=== PATIENT | female | born 1945 | race Caucasian/White ===

== ENCOUNTER → 2016-06-01 | Outpatient (CLI) | payer MEDICARE, BC ==
--- NOTE | 2016-06-01 11:43 | BD ---
EXAMINATION TYPE: MG DEXA axial skeleton. DATE OF EXAM: 06/01/2016 9:42 AM CLINICAL HISTORY: Height: 63.75 Weight: 109 FRAX RISK QUESTIONS: Alcohol (3 or more units per day): no Family History (Parent hip fracture): no Glucocorticoids (More than 3mos): no (Ex: prednisone, prednisolone, methylprednisolone, dexamethasone, and hydrocortisone). History of Fracture in Adulthood: no Secondary Osteoporosis: 1. Type 1 Diabetes: no 2. Hyperthyroidism: no 3. Menopause before 45: no 4. Malnutrition: no 5. Chronic liver disease: no Rheumatoid Arthritis: no Current Tobacco Use: no RISK FACTORS HISTORY OF: Surgery to Spine: yes, surgery for 2 ruptured discs about age 22 Family History of Osteoporosis: no Drink Alcohol: very very rarely Active: no Diet low in dairy products/other sources of calcium: no Postmenopausal woman: yes Take estrogen and/or progesterone medications: no Lost more than 2 inches in height since high school: no Frequent falls: no Poor Health: no Hyperparathyroidism: no Adrenal Insufficiency: no MEDICATIONS: Prednisone or other steroids: no Thyroid Medications: no Osteoporosis Medications: not now Which medication: Fosamax How Long: briefly, a couple months Additional Medications: calcium Additional History: hypoestrogenic female EXAM MEASUREMENTS: Bone mineral densitometry was performed using the [employer] System. Bone mineral density as measured about the Lumbar spine is: ----- L1-L4(G/cm2): 0.920 T Score Values are as follows: ----- L2: -2.4 ----- L3: -2.0 ----- L4: -1.9 ----- L1-L4: -2.2 Bone mineral density NOT previously done at this facility; previous elsewhere Bone mineral density about the R hip (g/cm2): 0.821 Bone mineral density about the L hip (g/cm2): 0.806 T Score values are as follows: -----R Neck: -1.6 -----L Neck: -1.7 -----R Intertrochanter: -2.2 -----L Intertrochanter: -1.9 Bone mineral density NOT previously done at this facility; previous elsewhere IMPRESSION: Osteopenia (T Score between -2.5 and -1 as noted by T score valuesLumbar Spine & Bilateral Hips There is slightly increased risk of fracture and the patient may be considered for treatment. Re-Screen 1-2 years. NOTE: T-SCORE=SD OF THE YOUNG ADULT MEAN.
--- NOTE | 2016-06-04 07:45 | MM ---
Reason for exam: screening (asymptomatic). Last mammogram was performed 1 year ago. History: Patient is postmenopausal and has history of high-risk lesion on a previous biopsy at age 48. High risk excisional biopsy of the left breast, 1994. Physical Findings: A clinical breast exam by your physician is recommended on an annual basis and results should be correlated with mammographic findings. MG 3D Screening Mammo W/Cad Bilateral CC and MLO view(s) were taken. Prior study comparison: May 28, 2015, mammogram, performed at [facility]. May 21, 2014, mammogram, performed at [facility]. The breast tissue is heterogeneously dense. This may lower the sensitivity of mammography. No significant changes when compared with prior studies. ASSESSMENT: Benign, BI-RAD 2 RECOMMENDATION: Routine screening mammogram of both breasts in 1 year.
== END | disposition home or self-care (01) ==
LOC: RADMAMWWP 08:25
PROVIDERS: ATTEND Obstetrics & Gynecology Obstetrics
DX: Z12.31 Encounter for screening mammogram for malignant neoplasm of breast (principal); M85.89 Other specified disorders of bone density and structure, multiple sites
CPT/HCPCS: 77080; 77063; G0202

== ENCOUNTER → 2016-11-25 | Outpatient (CLI) | payer MEDICARE, BC ==
--- NOTE | 2016-11-25 17:11 | US ---
EXAMINATION TYPE: US gallbladder DATE OF EXAM: 11/25/2016 COMPARISON: NONE CLINICAL HISTORY: Abd pain R10.84. back pain EXAM MEASUREMENTS: Liver Length: 10.8 cm Gallbladder Wall: 0.8 cm CBD: 0.5 cm Right Kidney: 10.3 x 3.9 x 4.3 cm Pancreas: not well visualized Liver: wnl Gallbladder: large stone near neck that did not mo;ve with patient rolled. thickened irregular wall, debris throughout Evidence for sonographic Christie's sign: No CBD: wnl Right Kidney: No hydronephrosis or masses seen IMPRESSION: There is a large gallstone impacted in the gallbladder neck. This measures 2.5 cm. There is some gallbladder wall thickening consistent with cholecystitis. No dilated ducts.
[2016-11-25 17:18] LABS: CH 26.7; CHCM 30.9; HCT 31.5 % (34.0-46.0); HDW 2.81; Hypochromasia Moderate; MCH 27.6 pg (25.0-35.0); MCHC 31.8 g/dL (31.0-37.0); MCV 86.7 fL (80.0-100.0); Mean Platelet Volume 7.5; RBC 3.63 m/uL (3.80-5.40); RDW 15.1 % (11.5-15.5); WBC 7.8 k/uL (3.8-10.6)
[2016-11-25 17:41] LABS: ALT 30 U/L (9-52); AST 18 U/L (14-36); Alkaline Phosphatase 70 U/L (38-126); Anion Gap 8 mmol/L; Blood Urea Nitrogen 19 mg/dL (7-17); Calcium 10.1 mg/dL (8.4-10.2); Carbon Dioxide 28 mmol/L (22-30); Chloride 102 mmol/L (98-107); Glucose 84 mg/dL (74-99); Non-African American GFR(MDRD) >60 (>60 ml/min/1.73 sqM); Potassium 4.8 mmol/L (3.5-5.1); Sodium 138 mmol/L (137-145); Total Bilirubin 0.5 mg/dL (0.2-1.3); Total Protein 6.4 g/dL (6.3-8.2)
== END | disposition home or self-care (01) ==
LOC: RADUSMAIN 16:36
PROVIDERS: ATTEND Surgery
DX: K80.20 Calculus of gallbladder without cholecystitis without obstruction (principal); K82.8 Other specified diseases of gallbladder
CPT/HCPCS: 76705; 80053; 85027

== ENCOUNTER 2016-12-24 08:38 | Inpatient (IN) | payer MEDICARE, BC ==
[2016-12-21 09:39] VITALS: BMI 18.2
[~2016-12-24 08:38] MED LIST: ceFAZolin 2 GM in SODIUM CHLORIDE 0.9% 100 ML IVPB ONE
[2016-12-24] MEDS: LIDOCAINE 1% 20 ML VIAL (10MG/ML) FOR IV START INTRADERMA ONE ×2 (09:12→09:28)
[2016-12-24] MEDS ORDERED: LACTATED RINGERS 1,000 ML IV ONE ×4 (09:12→09:27)
[2016-12-24] MEDS ORDERED: DEXAMETHASONE SOD PHOSPHATE 10 MG/ML 1 ML VIAL IV ONE (09:29)
[2016-12-24] MEDS ORDERED: ONDANSETRON 4 MG/2 ML VIAL IVP ONE (09:30)
[2016-12-24] MEDS: HEPARIN SODIUM,PORCINE 5,000 UNIT/ML 1 ML VIAL SQ ONE ×2 (09:34→13:24)
[2016-12-24] MEDS ORDERED: LIDOCAINE 1% INJ 10MG/ML (20 ML MDV) ONE (10:24)
[2016-12-24] MEDS ORDERED: MIDAZOLAM 2 MG/2 ML VIAL ONE (10:24)
[2016-12-24] MEDS ORDERED: fentaNYL (PF) 50 MCG/ML 2 ML AMP ONE (10:24)
[2016-12-24] MEDS ORDERED: ROCURONIUM BROMIDE 10 MG/ML 10 ML VIAL IV ONE (10:24)
[2016-12-24] MEDS ORDERED: NEOSTIGMINE 1 MG/ML 10 ML VIAL ONE (10:24)
[2016-12-24] MEDS ORDERED: SUCCINYLCHOLINE CHLORIDE 100 MG/5 ML SYR IV ONE (10:24)
[2016-12-24] MEDS ORDERED: PROPOFOL 10 MG/ML 20 ML VIAL IV ONE (10:24)
[2016-12-24] MEDS ORDERED: GLYCOPYRROLATE 0.2 MG/ML 2 ML VIAL ONE (10:24)
[2016-12-24] MEDS ORDERED: BUPIVACAINE (PF) 0.25% 30 ML VIAL SQ ONE ×3 (10:29)
[2016-12-24 11:47] LABS: Basophils % (A) 0 %; CHCM 29.6; Eosinophils % (A) 1 %; HCT 31.9 % (34.0-46.0); HDW 2.92; HGB 9.7 gm/dL (11.4-16.0); Hypochromasia Marked; Luc % (Auto) 2; Lymphocytes # (A) 1.2 k/uL (1.0-4.8); Lymphocytes % (A) 20 %; MCH 26.8 pg (25.0-35.0); MCHC 30.4 g/dL (31.0-37.0); MCV 88.2 fL (80.0-100.0); Mean Platelet Volume 7.3; Monocytes # (A) 0.2 k/uL (0-1.0); Monocytes % (A) 3 %; Neutrophils # (A) 4.4 k/uL (1.3-7.7); Neutrophils % (A) 74 %; RBC 3.62 m/uL (3.80-5.40); WBC 5.9 k/uL (3.8-10.6); WBC (Perox) 5.94
[2016-12-24] MEDS ORDERED: ONDANSETRON 4 MG/2 ML VIAL IVP PRN (12:08)
[2016-12-24] MEDS ORDERED: HYDROcodone/APAP 5-325MG 1 EACH TAB PO PRN (12:08)
[2016-12-24] MEDS ORDERED: NALOXONE 0.4 MG/ML 1 ML VIAL IV PRN (12:08)
[2016-12-24 12:11] LABS: INR 1.2 (<1.2); Prothrombin Time 11.8 sec (9.0-12.0)
[2016-12-24] MEDS ORDERED: RX INFO: IV CONTRAST WAS GIVEN 1 EACH MISC MISCELLANE PRN (12:14)
[2016-12-24] MEDS ORDERED: D5-0.45% NACL WITH KCL 20MEQ/L 1,000 ML IV SCH (12:15)
--- NOTE | 2016-12-24 12:28 | P.GSHP ---
History of Present Illness H&P Date: 12/24/16 Chief Complaint: back pain Female who a couple of months ago had back pain it was pretty mild did not interfere with her Life all that much. And she was worked up initially with an MRI that did not reveal any malignancy. The patient however is known to have very little food intake and after this particular attack the patient's nutritional status with decreased considerably since the MRI did not show anything of further ultrasound also did not reveal any other complication or anything to suggest malignancy at the time I recommended a laparoscopic possible robotic-assisted laparoscopic cholecystectomy. Procedure was not completed and she was extubated and taken to recovery room in stable condition. - Review of Systems Comment: And is drowsy the stent she just got out of surgery. No previous history of issues on review of systems except for the abdomen where she had pain radiating to the back. And this is based upon previous H&P that her 14 system review is essentially negative. ROS unobtainable: Reports: due to mental status Past Medical History Past Medical History: No Reported History History of Any Multi-Drug Resistant Organisms: None Reported Past Surgical History: Adenoidectomy, Appendectomy, Back Surgery, Tonsillectomy Past Anesthesia/Blood Transfusion Reactions: No Reported Reaction Smoking Status: Never smoker - Past Family History Mother Family Medical History: Cancer Additional Family Medical History / Comment(s): uterine cancer Medications and Allergies Home Medications Medication Instructions Recorded Confirmed Type Aspirin [Adult Low Dose Aspirin EC] 81 mg PO DAILY 12/21/16 12/24/16 History Calcium Carbonate [Calcium] 600 mg PO DAILY 12/21/16 12/24/16 History Fish Oil/Dha/Epa [Fish Oil 1,200 1 each PO DAILY 12/21/16 12/24/16 History mg Fish Oil] Garlic 1 each PO DAILY 12/21/16 12/24/16 History Multivitamins, Thera [Multivitamin 1 tab PO DAILY 12/21/16 12/24/16 History (formulary)] Allergies Allergy/AdvReac Type Severity Reaction Status Date / Time No Known Allergies Allergy Verified 12/24/16 08:52 Surgical - Exam Vital Signs Temp Pulse Resp BP Pulse Ox 97.0 F L 54 L 18 136/79 99 12/24/16 08:53 12/24/16 08:53 12/24/16 08:53 12/24/16 08:53 12/24/16 08:53 - General moderate pain, cachectic - Eyes no icteric, no deviation - ENT normal pinna, normal nares - Respiratory normal expansion, normal respiratory effort - Cardiovascular Rhythm: regular - Abdomen Patient abdomen is appropriately tender for being postsurgical. - Integumentary no rash, no growths, no abnormal pigmentation - Neurologic no disoriented, no combative - Psychiatric oriented to time, oriented to person, oriented to place, speech is normal, memory intact Results - Labs 12/24/16 11:23 Abnormal Lab Results - Last 24 Hours (Table) 12/24/16 12/24/16 Range/Units 11:23 11:23 RBC 3.62 L (3.80-5.40) m/uL Hgb 9.7 L (11.4-16.0) gm/dL Hct 31.9 L (34.0-46.0) % MCHC 30.4 L (31.0-37.0) g/dL INR 1.2 H (<1.2) - Imaging Additional studies: Ultrasound showed that there was an impacted stone in the gallbladder neck. MRI was unremarkable for any malignancy. Assessment and Plan (1) Coagulopathy Status: Acute (2) Malnutrition Status: Acute (3) Cholelithiases Status: Acute Plan: Due to the patient's minimal symptoms she was brought in today for this procedure. Initially during the procedure and while accessing the abdominal cavity there was some bleeding due to minor laceration of the liver however once the ports had been established there was significant amount of bleeding on any tissue that was touched including skin due to the coagulopathy the procedure was not completed and she was extubated and taken out of the operating room. Hemoglobin done intraoperatively was 9.7 which is not considerably below the tendon was done preoperatively. However detailed discussion with the patient and the patient's family for the past 2 months the patient intake has been generally poor and she has been losing weight for about and she has lost about 10 pounds she is currently malnourished with a BMI of 18.2. Although she has been active her nutritional intake has been very very low and I strongly suspect malnutrition related coagulopathy. There was very densely adherent bowel and adhesions around the gallbladder itself. There any kind of dissection was being done resulted in significant amount of bleeding and also easy fracturing of the liver. Although the bleeding was controlled both with electrocautery as well as FloSeal the procedure was abandoned for insertion that this may be malignant and while eating the planes weren't resulted in converting this into a stage IV. I will discuss this both with the patient family and the family and we will consult hepatobiliary surgeon for further follow-up. Her malnutrition I will consult nutrition and looped nutritional parameters Due to the coagulopathy I will consult Dr. De Santiago can help also with workup for possible gallbladder cancer.
--- NOTE | 2016-12-24 12:34 | P.OP ---
Date of Procedure: 12/24/16 Preoperative Diagnosis: symptomatic cholelithiasis Postoperative Diagnosis: coagulopahty choleltihaisis Procedure(s) Performed: Diagnositc laparoscopy Anesthesia: ARTEMIO Surgeon: Alex Wilson Pathology: none sent Operative Findings: Significant amount of adhesions in the right upper quadrant precluding proper visualization of the gallbladder. Very fragile liver with easy tears. Significant amount of coagulopathy. Description of Procedure: Patient is 71-year-old female who presented with moderate amounts tender wanted to severe back pain. She is a very stoic person and was initially worked up both with an MRI and ultrasound revealing a large stone impacted in the infundibulum of the gallbladder. Due to the fact that there was no obvious reason to consider malignancy from the MRI and the ultrasound and recommended laparoscopic cholecystectomy. She is brought in today and after appropriate consent taken the operating room and given general anesthesia with endotracheal intubation abdomen prepped and draped in the usual sterile surgical fashion. Stone's point was identified in the left upper quadrant Veress needle was introduced and all the drop test was positive the insufflation Showing occlusion at this time the Veress needle was removed and Optiview isn't attempted. 5 mm scope was used for the Optiview technique. Once passing through this skin and subcu anus tissue there was sudden gush of blood and that was when I did not proceed with the Optiview and removed it. Several umbilical site was identified and Veress needle again was used for entering the abdominal cavity abdomen was thoroughly insufflated to 50 mmHg and then a 12 mm port was placed in that site. It was noted that in the left upper quadrant there was significant amount of blood was superficial laceration of the liver itself. This was very easily controlled with minimal electrocautery. This was that was also some reported with FloSeal being put on top of it. There was thoroughly irrigation the left upper quadrant there was no further bleedings pain did not look injured the liver was itself folded upwards there then it had not gone all the way through posterior surface of the left toe completely looked completely normal. At this time to for the port was placed in the left lower quadrant of note is that she had very thin and very fragile abdominal wall and allowed very easy passage of the ports. The gallbladder side area was identified and there was dense adhesions. It was gently elevated and in spite of very gentle motion there was significant amount of bleeding from the adhesions with the gallbladder. On the liver itself easily fractured but does smoke and there was small linear tears in the capsule only in the wound and the bleeding was controlled with electrocautery. Due to the fact that it looked so thick second I strongly suspected a malignancy and therefore did not proceed to use electrocautery to cut right through arm and due to the significant amount of bleeding with minimal Touching and the continued bleeding from the skin and the skin and the incisional surfaces strongly suspected a coagulopathy and because of that I didn't stop. A stat CBC was sent at this time. Abdomen was thoroughly irrigated and sucked dry the procedure well at this time terminated. Hemostasis was noted to be secure. 19-Kiswahili drain was placed in the subhepatic fossa extending to the left upper quadrant and secured in the right upper quadrant. The patient remained stable throughout the rest of the Mukesh abdomen was thoroughly investigated there was no other signs of injury. Once this was done all ports were removed abdomen was thoroughly desufflated the 12 mm port site was closed with UR 6 running under direct vision. 5 mm ports had been removed skin was closed with 4-0 Monocryl and Dermabond was applied patient was extubated and taken to recovery room in stable condition.
[2016-12-24 16:21] LABS: Basophils % (A) 0 %; CH 26.7; CHCM 30.9; Eosinophils % (A) 0 %; HDW 2.93; HGB 9.6 gm/dL (11.4-16.0); Hypochromasia Moderate; Luc # (Auto) 0.04; Luc % (Auto) 1; Lymphocytes # (A) 0.4 k/uL (1.0-4.8); Lymphocytes % (A) 6 %; MCV 86.9 fL (80.0-100.0); Mean Platelet Volume 7.8; Monocytes # (A) 0.1 k/uL (0-1.0); Monocytes % (A) 1 %; Neutrophils # (A) 6.3 k/uL (1.3-7.7); Neutrophils % (A) 92 %; RBC 3.68 m/uL (3.80-5.40); RDW 15.8 % (11.5-15.5); WBC 6.9 k/uL (3.8-10.6); WBC (Perox) 7.64
[2016-12-24 16:30] LABS: Anion Gap 10 mmol/L; Blood Urea Nitrogen 21 mg/dL (7-17); Calcium 9.6 mg/dL (8.4-10.2); Carbon Dioxide 24 mmol/L (22-30); Chloride 103 mmol/L (98-107); Glucose 167 mg/dL (74-99); Non-African American GFR(MDRD) >60 (>60 ml/min/1.73 sqM); Potassium 4.1 mmol/L (3.5-5.1); Sodium 137 mmol/L (137-145)
--- NOTE | 2016-12-24 17:51 | CT ---
EXAMINATION TYPE: CT abdomen pelvis w con DATE OF EXAM: 12/24/2016 COMPARISON: NONE HISTORY: Excessive bleeding during attempt to perform cholecystectomy. Surgery was abandoned. Patient complains of weight loss. CT DLP: 289.30 mGycm Automated exposure control for dose reduction was used. TECHNIQUE: Helical acquisition of images was performed from the lung bases through the pelvis. CONTRAST: Performed without Oral Contrast and with IV Contrast, patient injected with 100 mL of Omnipaque 300. FINDINGS: There is subcutaneous air and also small pneumoperitoneum apparently due to recent surgery. Lung bases are clear of consolidation. There is no sign of a pneumothorax. Heart is enlarged. There i s no pleural effusion. There is irregular thickening of the gallbladder wall. There is a 2 cm calcified gallstone. There is hypodensity around the gallbladder that could be involving the liver. Spleen appears normal. There is no evidence of pancreatic mass. Bile ducts are not dilated. There is a large drainage catheter in the anterior upper abdomen. There is no adrenal mass. I see no bony destructive process. There is no hydronephrosis. There is free fluid in the pelvis. Aj dder distends smoothly. There is no sign of a pelvic mass. There is a 2 cm area of decreased cortical density in the medial posterior right kidney. This could be due to ischemia. IMPRESSION: POSTSURGICAL CHANGES. EXTENSIVE GALLBLADDER WALL THICKENING AND LARGE CALCIFIED GALLSTONE. GALLBLADDE R MASS CANNOT BE EXCLUDED. THERE IS POSSIBLE EDEMA IN THE LIVER ADJACENT TO GALLBLADDER. MODERATE AMOUNT OF FREE FLUID IN THE PELVIS CONSISTENT WITH ASCITES OR IRRIGATION FLUID FROM THE SURG GILBERTO. THIS HAS LOW ATTENUATION AND I DO NOT SUSPECT HEMORRHAGE.. CORTICAL HYPODENSITY IN THE RIGHT KIDNEY COULD RELATE TO ISCHEMIA OR INFARCT.
[2016-12-24 19:52] VITALS: RESP 16
[2016-12-24] MEDS ORDERED: traMADol 50 MG TAB PO SCH (22:00)
[2016-12-25] MEDS: traMADol 50 MG TAB PO PRN ×3 (01:06→14:20)
[2016-12-25] MEDS ORDERED: PANTOPRAZOLE 40 MG/10 ML VIAL IV SCH (09:00)
[2016-12-25] MEDS ORDERED: RX INFO: IV CONTRAST WAS GIVEN 1 EACH MISC MISCELLANE PRN (09:20)
[2016-12-25 10:08] LABS: Anisocytosis Slight; Basophils % (A) 0 %; CH 26.7; CHCM 30.7; Eosinophils % (A) 0 %; HCT 28.8 % (34.0-46.0); HDW 2.91; HGB 8.7 gm/dL (11.4-16.0); Hypochromasia Moderate; Luc # (Auto) 0.08; Luc % (Auto) 1; Lymphocytes # (A) 1.1 k/uL (1.0-4.8); Lymphocytes % (A) 14 %; MCH 26.5 pg (25.0-35.0); MCHC 30.3 g/dL (31.0-37.0); MCV 87.5 fL (80.0-100.0); Mean Platelet Volume 7.9; Monocytes # (A) 0.5 k/uL (0-1.0); Monocytes % (A) 6 %; Neutrophils % (A) 78 %; RBC 3.29 m/uL (3.80-5.40); WBC 7.7 k/uL (3.8-10.6); WBC (Perox) 7.87
[2016-12-25 10:13] VITALS: PULSE 53
[2016-12-25 11:24] LABS: ALT 35 U/L (9-52); AST 28 U/L (14-36); Alkaline Phosphatase 71 U/L (38-126); Anion Gap 9 mmol/L; Blood Urea Nitrogen 26 mg/dL (7-17); Calcium 10.2 mg/dL (8.4-10.2); Carbon Dioxide 23 mmol/L (22-30); Chloride 99 mmol/L (98-107); Glucose 110 mg/dL (74-99); Non-African American GFR(MDRD) >60 (>60 ml/min/1.73 sqM); Potassium 5.4 mmol/L (3.5-5.1); Sodium 131 mmol/L (137-145); Total Bilirubin 0.4 mg/dL (0.2-1.3); Total Protein 6.5 g/dL (6.3-8.2)
--- NOTE | 2016-12-25 12:51 | P.CONS ---
History of Present Illness - Reason for Consult cholelithiasis. - History of Present Illness patient a is a pleasant 71-year-old female admitted for elective cholecystectomy. During the surgery operative. Patient is found to have excessive bleeding during the procedure because of which cholecystectomy was not done and patient was admitted for monitoring. Patient is clinically doing well today patient in the past and is found to have cholelithiasis without any complications without any cholecystitis patient had an MRI to rule out malignancy which did not reveal any malignancy at that time. Patient used to take aspirin which was discontinued for probably 6 weeks ago. And patient also takes garlic which may contribute to excessive bleeding as well. Patient was never tested for any bleeding disorders. Review of Systems REVIEW OF SYSTEMS: CONSTITUTIONAL: No fever, no malaise, no fatigue. HEENT: No recent visual problems or hearing problems. Denied any sore throat. CARDIOVASCULAR: No chest pain, orthopnea, PND, no palpitations, no syncope. PULMONARY: No shortness of breath, no cough, no hemoptysis. GASTROINTESTINAL: No diarrhea, no nausea, no vomiting, no abdominal pain. Normoactive bowel sounds. NEUROLOGICAL: No headaches, no weakness, no numbness. HEMATOLOGICAL: Denies any bleeding or petechiae. GENITOURINARY: Denies any burning micturition, frequency, or urgency. MUSCULOSKELETAL/RHEUMATOLOGICAL: Denies any joint pain, swelling, or any muscle pain. ENDOCRINE: Denies any polyuria or polydipsia. The rest of the 14-point review of systems is negative. Past Medical History Past Medical History: No Reported History History of Any Multi-Drug Resistant Organisms: None Reported Past Surgical History: Adenoidectomy, Appendectomy, Back Surgery, Tonsillectomy Past Anesthesia/Blood Transfusion Reactions: No Reported Reaction Smoking Status: Never smoker - Past Family History Mother Family Medical History: Cancer Additional Family Medical History / Comment(s): uterine cancer Father Additional Family Medical History / Comment(s): [facility], at 86 Medications and Allergies Home Medications Medication Instructions Recorded Confirmed Type Calcium Carbonate [Calcium] 600 mg PO DAILY 12/21/16 12/24/16 History Fish Oil/Dha/Epa [Fish Oil 1,200 1 cap PO DAILY 12/21/16 12/24/16 History mg Fish Oil] Multivitamins, Thera [Multivitamin 1 tab PO DAILY 12/21/16 12/24/16 History (formulary)] Allergies Allergy/AdvReac Type Severity Reaction Status Date / Time No Known Allergies Allergy Verified 12/24/16 08:52 Physical Exam Vitals: Vital Signs Temp Pulse Pulse Pulse Resp BP Pulse Ox 12/25/16 07:00 97.7 F 53 L 16 121/68 100 12/25/16 01:09 97.8 F 60 16 109/65 100 12/24/16 19:40 98.1 F 54 L 54 L 16 124/75 100 12/24/16 15:00 55 L 146/72 12/24/16 14:45 50 L 132/79 12/24/16 14:30 51 L 134/82 12/24/16 14:15 55 L 130/79 12/24/16 14:00 57 L 141/80 12/24/16 13:45 48 L 134/76 12/24/16 13:30 98.0 F 50 L 17 133/73 99 12/24/16 13:01 52 L 16 115/60 98 12/24/16 12:47 52 L 16 113/62 98 Intake and Output 12/24/16 12/25/16 12/25/16 22:59 06:59 14:59 Output Total 355 80 30 Balance -355 -80 -30 Output: Drainage 355 80 30 Right Lower Abdomen 355 80 30 Other: # Voids 3 3 Weight 46.72 kg Patient Weight 12/26/16 06:59 Weight 46.72 kg PHYSICAL EXAMINATION: GENERAL: The patient is alert and oriented x3, not in any acute distress. Well developed, well nourished. HEENT: Pupils are round and equally reacting to light. EOMI. No scleral icterus. No conjunctival pallor. Normocephalic, atraumatic. No pharyngeal erythema. No thyromegaly. CARDIOVASCULAR: S1 and S2 present. No murmurs, rubs, or gallops. PULMONARY: Chest is clear to auscultation, no wheezing or crackles. ABDOMEN: Soft,surgical site appeared area appears to be clear without any bleeding. MUSCULOSKELETAL: No joint swelling or deformity. EXTREMITIES: No cyanosis, clubbing, or pedal edema. NEUROLOGICAL: Gross neurological examination did not reveal any focal deficits. SKIN: No rashes. Results CBC & Chem 7: 12/25/16 07:17 12/25/16 10:56 Labs: Abnormal Lab Results - Last 24 Hours (Table) 12/24/16 12/24/16 12/24/16 Range/Units 15:50 15:50 15:50 RBC 3.68 L (3.80-5.40) m/uL Hgb 9.6 L (11.4-16.0) gm/dL Hct 32.0 L (34.0-46.0) % MCHC 30.0 L (31.0-37.0) g/dL RDW 15.8 H (11.5-15.5) % Lymphocytes # 0.4 L (1.0-4.8) k/uL Sodium (137-145) mmol/L Potassium (3.5-5.1) mmol/L BUN 21 H (7-17) mg/dL Glucose 167 H (74-99) mg/dL Prealbumin 11.0 L (18.0-42.0) mg/dL 12/25/16 12/25/16 Range/Units 07:17 10:56 RBC 3.29 L (3.80-5.40) m/uL Hgb 8.7 L (11.4-16.0) gm/dL Hct 28.8 L (34.0-46.0) % MCHC 30.3 L (31.0-37.0) g/dL RDW 16.0 H (11.5-15.5) % Lymphocytes # (1.0-4.8) k/uL Sodium 131 L (137-145) mmol/L Potassium 5.4 H (3.5-5.1) mmol/L BUN 26 H (7-17) mg/dL Glucose 110 H (74-99) mg/dL Prealbumin (18.0-42.0) mg/dL Assessment and Plan Plan: #1 cholelithiasis: Patient had unsuccessful cholecystectomy procedure. Regarding excessive bleeding I recommended her to stop garlic and patient can be tested as an outpatient for clotting factor deficiencies. Regarding aspirin patient may not benefit from aspirin since she doesn't have any high blood pressure hyperlipidemia or diabetes mellitus. I believe it's being used as a preventative measure for several vascular accidents and myocardial infarction.
--- NOTE | 2016-12-25 13:05 | ECHOF ---
Referral Reason:Evaluate LV Function MEASUREMENTS -------- HEIGHT: 160.0 cm WEIGHT: 46.7 kg BP: 109/65 RVIDd: 2.6 cm (< 3.3) IVSd: 0.7 cm (0.6 - 1.1) LVIDd: 4.1 cm (3.9 - 5.3) LVPWd: 0.7 cm (0.6 - 1.1) IVSs: 1.1 cm LVIDs: 2.5 cm LVPWs: 1.2 cm LA Diam: 2.6 cm (2.7 - 3.8) LAESV Index (A-L): 21.69 ml/m Ao Diam: 2.9 cm (2.0 - 3.7) AV Cusp: 1.9 cm (1.5 - 2.6) MV EXCURSION: 18.894 mm (> 18.000) MV EF SLOPE: 105 mm/s (70 - 150) EPSS: 0.3 cm MV E Mark: 0.86 m/s MV DecT: 209 ms MV A Mark: 0.62 m/s MV E/A Ratio: 1.40 RAP: 5.00 mmHg RVSP: 21.56 mmHg FINDINGS -------- Resting bradycardia (HR<60bpm). This was a technically good study. The left ventricular size is normal. Left ventricular wall thickness is normal. Overall left ventricular systolic function is low-normal with, an EF between 50 - 55 %. The right ventricle is normal in size. Normal LA size by volume 22+/-6 ml/m2. The right atrium is normal in size. The aortic valve is trileaflet and appears structurally normal. There is trace mitral regurgitation. Mild tricuspid regurgitation present. Right ventricular systolic pressure is normal at < 35 mmHg. There is no pulmonic regurgitation present. The aortic root size is normal. The inferior vena cava is mildly dilated. There is a trivial pericardial effusion present. CONCLUSIONS -------- 1. Resting bradycardia (HR<60bpm). 2. There is trace mitral regurgitation. 3. Mild tricuspid regurgitation present. 4. Right ventricular systolic pressure is normal at < 35 mmHg. 5. There is no pulmonic regurgitation present. 6. The aortic root size is normal. 7. The inferior vena cava is mildly dilated. 8. There is a trivial pericardial effusion present. 9. This was a technically good study. 10. The left ventricular size is normal. 11. Left ventricular wall thickness is normal. 12. Overall left ventricular systolic function is low-normal with, an EF between 50 - 55 %. 13. The right ventricle is normal in size. 14. Normal LA size by volume 22+/-6 ml/m2. 15. The right atrium is normal in size. 16. The aortic valve is trileaflet and appears structurally normal. MEDICAL CODING TECHNICIAN: Delilah James RDCS
[2016-12-25 13:27] LABS: Basophils % (A) 0 %; CH 26.9; CHCM 31.2; Eosinophils % (A) 0 %; HCT 29.7 % (34.0-46.0); HDW 2.94; Hypochromasia Moderate; Luc % (Auto) 1; Lymphocytes % (A) 12 %; MCH 26.3 pg (25.0-35.0); MCHC 30.3 g/dL (31.0-37.0); MCV 86.6 fL (80.0-100.0); Mean Platelet Volume 7.7; Monocytes # (A) 0.5 k/uL (0-1.0); Monocytes % (A) 6 %; Neutrophils # (A) 6.6 k/uL (1.3-7.7); Neutrophils % (A) 80 %; RBC 3.43 m/uL (3.80-5.40); RDW 15.9 % (11.5-15.5); WBC 8.2 k/uL (3.8-10.6); WBC (Perox) 8.82
--- NOTE | 2016-12-25 13:50 | CDI ---
In responding to this query, please exercise your independent professional judgment. The [facility] Coding Staff and Clinical Documentation Specialists appreciate your assistance in clarifying documentation, maintaining compliance with coding guidelines, accurately documenting patients condition and capturing severity of illness. The fact that a question is asked does not imply that any particular answer is desired or expected. Communication forms are a method of clarifying documentation and are not made part of the Legal Health Record. Thank you in advance for your clarification. Last Revision, January 2015 Sacha Alford [address] [place] [address] Documentation Clarification Form Date: 12/25/2016 1:39:00 PM From: Leola Bates CCS, CCDS Admit Date: 12/24/2016 12:07:00 PM Patient Name: Catherine Rollins Visit Number: [id number] Discharge Date: Dr. Alex Tapia Steve: Malnutrition has been documented in the history & physical. History/Risk Factors: Cholelithiasis, chronic back pain. Clinical Indicators: Admitted for elective laparoscopic cholecystectomy, procedure canceled d/t minor laceration of liver & bleeding, controlled w/ cautery. Labs: Albumin (3.5), PreAlbumin (3.5), Total Protein (6.5). Current BMI: 18.2 Poor oral intake, underweight, 5 lb unintentional weight loss. Treatment: Heparin sc, IV Kefzol, IV Narcan, IV Zofran, IV fluid, IV Protonix, Ensure. Dietary Consult, Hem/Onc consult, Medical management consult. In your professional opinion, can you please clarify if these findings signify one of the following conditions? Mild Protein Malnutrition Mild Protein-Calorie Malnutrition Moderate Protein Malnutrition Moderate Protein-Calorie Malnutrition Severe Protein Malnutrition Severe Protein-Calorie Malnutrition Malnutrition following GI surgery Other condition, please specify Unable to determine Please document in your progress notes and discharge summary in order to capture severity of illness and risk of mortality. Include clinical findings that support your diagnosis. FYI: Press F11 to launch patient chart. MTDYvonne
--- NOTE | 2016-12-25 14:17 | P.DS ---
Providers Date of admission: 12/24/16 12:07 Expected date of discharge: 12/25/16 Attending physician: Alex Mcdermott Consults: 12/24/16 12:08 Consult Physician Routine Consulting Provider: Emiliano De Santiago Consult Reason/Comments: excessive bleeding/ ciagulopathy Do you want consulting provider notified?: Yes 12/24/16 19:53 Consult Physician Routine Consulting Provider: Alfonso Bartholomew Consult Reason/Comments: Bradycardia Do you want consulting provider notified?: Yes Primary care physician: Alex Mcdermott Hospital Course: 71-year-old female who presented on the day of admission to undergo an elective cholecystectomy. During the procedure the patient was noted to have extensive bleeding very fragile liver which was easily tearing. There was a significant amount coagulopathy. Patient has a significant amount of adhesions in the right upper quadrant precluding proper visualization of the gallbladder given the above clinical findings Dr. mcdermott made a decision not to proceed with the cholecystectomy. Hematology consultation was requested patient was seen by Dr. De Santiago Hematology repeat hemoglobin on the was stable at 9 further workup would be addressed in the outpatient setting next Wednesday to by Dr. cmdermott in the office. Dr. mcdermott did update the family the clinical findings. Patient had an echocardiogram done on the 25 of December it did show left ventricular systolic function low normal with an EF between 50 and 55% no valvular heart disease no pulmonary hypertension Patient was noted to be sinus bradycardic asymptomatic heart rate in the 50s Impression discharge diagnosis Echocardiogram left ventricular systolic function low normal EF between 50 and 55% done on December 25 Asymptomatic bradycardic heart rate in the 50s Present on admission mild protein calorie malnutrition underweight BMI 18.2 suspect due to poor caloric intake decreased appetite Diagnostic laparoscopic appendectomy done on December 24 Operative findings and the significant amount of adhesions in the right upper quadrant protruding proper visualization of the gallbladder with a very fragile liver easy tears with a significant amount of coagulopathy suspect malignancy not ruled out The above impression and plan of care have been discussed and directed by signing physician. Glenny Wan nurse practitioner acting as scribe for signing physician. Plan - Discharge Summary New Discharge Prescriptions: Continue Multivitamins, Thera [Multivitamin (formulary)] 1 tab PO DAILY Fish Oil/Dha/Epa [Fish Oil 1,200 mg Fish Oil] 1 cap PO DAILY Calcium Carbonate [Calcium] 600 mg PO DAILY Discontinued Garlic 1 tab PO DAILY Aspirin [Adult Low Dose Aspirin EC] 81 mg PO DAILY Discharge Medication List Calcium Carbonate [Calcium] 600 mg PO DAILY 12/21/16 [History] Fish Oil/Dha/Epa [Fish Oil 1,200 mg Fish Oil] 1 cap PO DAILY 12/21/16 [History] Multivitamins, Thera [Multivitamin (formulary)] 1 tab PO DAILY 12/21/16 [History ] Follow up Appointment(s)/Referral(s): Alex Mcdermott MD [Primary Care Provider] - 12/29/16 Ambulatory/Diagnostic Orders: Basic Metabolic Panel [LAB.AMB] Time Frame: 3 Days, Location: Determined By Patient Complete Blood Count w/diff [LAB.AMB] Time Frame: 12/29/16, Location: Determined By Patient Complete Blood Count w/diff [LAB.AMB] Time Frame: 12/28/16, Location: Determined By Patient Comprehensive Metabolic Panel [LAB.AMB] Time Frame: 12/28/16, Location: Determined By Patient Comprehensive Metabolic Panel [LAB.AMB] Time Frame: 12/28/16, Location: Determined By Patient Activity/Diet/Wound Care/Special Instructions: Regular. Patient is scheduled for a CAT scan of the chest with IV contrast this coming Wednesday Discharge Disposition: HOME SELF-CARE
[2016-12-25 15:07] VITALS: BP 130/76; TEMP 97.5
--- NOTE | 2016-12-25 15:12 | P.CONS ---
History of Present Illness - Reason for Consult Consult date: 12/25/16 hemorrhage Requesting physician: Alex Wilson - Chief Complaint choelycystitis - History of Present Illness Mrs. Rollins is a very pleasant 71 year old female patient who came to the hospital with complaints of right upper quadrant pain that radiated to her right shoulder and across her back. Patient was seen by Dr. Wilson and taken pt to surgery for laparoscopic cholecystectomy. Unfortunately patient had severe bleeding so, the procedure was terminated after hemostasis was achieved. We have been consulted for intraoperative bleeding. Patient denied being on any anticoagulation or antiplatelet therapy, no history of bleeding problems, denied anemia, fevers, sweats, enlarged lymph nodes, excessive fatigue, she thinks she has lost a little bit of weight recently but, attributes that to her gallbladder, denies nausea or vomiting, indigestion, heartburn, abdominal pain or distention, she has had a few episodes of diarrhea, she relates it to what she eats, she denies black, mucoid or bloody stools, no shortness of breath, cough, activity intolerance, palpitations, dizziness, swelling in the feet or other pain to report. when asked patient feels in her usual state of health other than having "attacks", referring to her gallbladder. Review of Systems 14 point review of systems is as stated in HPI Past Medical History Past Medical History: No Reported History History of Any Multi-Drug Resistant Organisms: None Reported Past Surgical History: Adenoidectomy, Appendectomy, Back Surgery, Tonsillectomy Past Anesthesia/Blood Transfusion Reactions: No Reported Reaction Smoking Status: Never smoker Past Alcohol Use History: None Reported Past Drug Use History: None Reported - Past Family History Mother Family Medical History: Cancer Additional Family Medical History / Comment(s): uterine cancer Father Additional Family Medical History / Comment(s): parkinson's CT, at 86 Medications and Allergies Home Medications Medication Instructions Recorded Confirmed Type Calcium Carbonate [Calcium] 600 mg PO DAILY 12/21/16 12/24/16 History Fish Oil/Dha/Epa [Fish Oil 1,200 1 cap PO DAILY 12/21/16 12/24/16 History mg Fish Oil] Multivitamins, Thera [Multivitamin 1 tab PO DAILY 12/21/16 12/24/16 History (formulary)] traMADol HCL [Ultram] 50 mg PO Q6H PRN #30 tab 12/25/16 Rx Allergies Allergy/AdvReac Type Severity Reaction Status Date / Time No Known Allergies Allergy Verified 12/24/16 08:52 Physical Exam Vitals: Vital Signs Temp Pulse Pulse Pulse Resp BP Pulse Ox 12/25/16 07:00 97.7 F 53 L 16 121/68 100 12/25/16 01:09 97.8 F 60 16 109/65 100 12/24/16 19:40 98.1 F 54 L 54 L 16 124/75 100 Intake and Output 12/25/16 12/25/16 12/25/16 06:59 14:59 22:59 Output Total 80 30 Balance -80 -30 Output: Drainage 80 30 Right Lower Abdomen 80 30 Other: # Voids 3 3 Weight 46.72 kg Patient Weight 12/26/16 06:59 Weight 46.72 kg - Constitutional General appearance: cooperative, no acute distress, thin - EENT Eyes: anicteric sclerae, EOMI, normal appearance ENT: hearing grossly normal, normal oropharynx - Neck Neck: no lymphadenopathy - Respiratory Respiratory: bilateral: CTA - Cardiovascular Rhythm: regular Heart sounds: normal: S1, S2 leg Peripheral Edema: bilateral: Trace - Gastrointestinal laparoscopic incisions well approximated, patient is guarding her abdomen, no rigidity General gastrointestinal: normal bowel sounds, soft - Integumentary Integumentary: pale - Neurologic Neurologic: CNII-XII intact - Musculoskeletal Musculoskeletal: strength equal bilaterally - Psychiatric Psychiatric: A&O x's 3, appropriate affect, intact judgment & insight Results CBC & Chem 7: 12/25/16 13:11 12/25/16 10:56 Labs: Abnormal Lab Results - Last 24 Hours (Table) 12/24/16 12/24/16 12/24/16 Range/Units 15:50 15:50 15:50 RBC 3.68 L (3.80-5.40) m/uL Hgb 9.6 L (11.4-16.0) gm/dL Hct 32.0 L (34.0-46.0) % MCHC 30.0 L (31.0-37.0) g/dL RDW 15.8 H (11.5-15.5) % Lymphocytes # 0.4 L (1.0-4.8) k/uL Sodium (137-145) mmol/L Potassium (3.5-5.1) mmol/L BUN 21 H (7-17) mg/dL Glucose 167 H (74-99) mg/dL Prealbumin 11.0 L (18.0-42.0) mg/dL 12/25/16 12/25/16 12/25/16 Range/Units 07:17 10:56 13:11 RBC 3.29 L 3.43 L (3.80-5.40) m/uL Hgb 8.7 L 9.0 L (11.4-16.0) gm/dL Hct 28.8 L 29.7 L (34.0-46.0) % MCHC 30.3 L 30.3 L (31.0-37.0) g/dL RDW 16.0 H 15.9 H (11.5-15.5) % Lymphocytes # (1.0-4.8) k/uL Sodium 131 L (137-145) mmol/L Potassium 5.4 H (3.5-5.1) mmol/L BUN 26 H (7-17) mg/dL Glucose 110 H (74-99) mg/dL Prealbumin (18.0-42.0) mg/dL CT scan - abdomen: report reviewed CT scan - pelvis: report reviewed Assessment and Plan (1) Coagulopathy Narrative/Plan: Case was reviewed with Dr. De Santiago. Additional labs have been drawn for coagulopathy. Dr. De Santiago did discuss the case with Dr. Wilson and concerns for the friability and nodularity of the liver on inspection. CT of the chest has been ordered for Wednesday to complete imaging to evaluate for any possible mass. Follow-up appointment with Dr. De Santiago will be communicated to patient. Contact information has been taken. Status: Acute
[2016-12-28 06:09] LABS: Vitamin E (Alpha Tocopherol) 1202 ug/dL (500-1800)
[2016-12-28 14:39] LABS: Von Willebrand Factor Antigen 161 % (52-214)
[2016-12-28 22:35] LABS: Fibrinogen Antigen 330 mg/dL (180-350)
[2016-12-29 16:17] LABS: Mis test requested (Blood) Factor VII Activity
[2016-12-30 13:37] LABS: Vitamin K 250 pg/mL (80-1160)
== END 2016-12-25 16:45 | disposition home or self-care (01) | DRG 424 ==
LOC: OR 08:38 → 3SUR 12:07 → OR 13:01
PROVIDERS: ADMIT Surgery; ATTEND Surgery
PROC: 0W3G4ZZ Control Bleeding in Peritoneal Cavity, Percutaneous Endoscopic Approach (ICD-10-PCS; principal; 2016-12-24 10:30)
DX: K80.20 Calculus of gallbladder without cholecystitis without obstruction (principal); Z68.1 Body mass index [BMI] 19.9 or less, adult; D68.9 Coagulation defect, unspecified; R00.1 Bradycardia, unspecified; E44.1 Mild protein-calorie malnutrition; Z53.8 Procedure and treatment not carried out for other reasons
CPT/HCPCS: 74177; 80048; 80053; 82040; 82306; 84134; 84446; 84484; 84590; 84597; 85025; 85230; 85246; 85385; 85610; 93005; 93306

== ENCOUNTER → 2016-12-28 | Outpatient (CLI) | payer MEDICARE, BC ==
--- NOTE | 2016-12-28 10:09 | CT ---
EXAMINATION TYPE: CT chest w con DATE OF EXAM: 12/28/2016 COMPARISON: NONE HISTORY: Patient has no complaints at time of service CT DLP: 112.8 mGycm Automated exposure control for dose reduction was used. CONTRAST: CT scan of the chest is performed with IV Contrast, patient injected with 100 mL of Omnipaque 300. FINDINGS: LUNGS: The lungs are grossly clear, there is no concerning parenchymal mass or nodule identified. T here is no pleural effusion or pneumothorax seen. The tracheobronchial tree is patent. MEDIASTINUM: There are no greater than 1 cm hilar or mediastinal lymph nodes. The heart is mildly enl arged. Small pericardial effusion measuring 2 mm. Thoracic aorta is of normal caliber. The heart is n ot enlarged. UPPER ABDOMEN: Postoperative changes upper abdomen. Cholelithiasis with extensive gallbladder wall th ickening and pericholecystic fluid. Drainage catheter is in place. Subcutaneous air overlying the upp er right abdomen. OTHER: No additional significant abnormality is seen. IMPRESSION: 1. Mild cardiomegaly with tiny pericardial effusion. 2. Postoperative changes upper abdomen as discussed.
== END | disposition home or self-care (01) ==
LOC: RADCTMAIN 09:13
DX: I31.3 Pericardial effusion (noninflammatory) (principal); I51.7 Cardiomegaly; Z98.890 Other specified postprocedural states
CPT/HCPCS: 71260; Q9967

== ENCOUNTER → 2017-06-02 | Outpatient (CLI) | payer MEDICARE, BC ==
--- NOTE | 2017-06-03 11:11 | MM ---
Reason for exam: screening (asymptomatic). Last mammogram was performed 1 year ago. History: Patient is postmenopausal and has history of high-risk lesion on a previous biopsy at age 48. High risk excisional biopsy of the left breast, 1994. Physical Findings: A clinical breast exam by your physician is recommended on an annual basis and results should be correlated with mammographic findings. MG 3D Screening Mammo W/Cad Bilateral CC and MLO view(s) were taken. Prior study comparison: June 01, 2016, bilateral MG 3d screening mammo w/cad. May 28, 2015, mammogram, performed at [facility]. The breast tissue is heterogeneously dense. This may lower the sensitivity of mammography. No significant changes when compared with prior studies. ASSESSMENT: Benign, BI-RAD 2 RECOMMENDATION: Routine screening mammogram of both breasts in 1 year.
== END | disposition home or self-care (01) ==
LOC: RADMAMWWP 09:22
PROVIDERS: ATTEND Obstetrics & Gynecology Obstetrics
DX: Z12.31 Encounter for screening mammogram for malignant neoplasm of breast (principal)
CPT/HCPCS: 77063; 77067

== ENCOUNTER → 2018-06-03 | Outpatient (CLI) | payer MEDICARE, BC ==
--- NOTE | 2018-06-06 09:15 | MM ---
Reason for exam: screening (asymptomatic). Last mammogram was performed 1 year ago. History: Patient is postmenopausal and has history of high-risk lesion on a previous biopsy at age 48. High risk excisional biopsy of the left breast, 1994. Physical Findings: A clinical breast exam by your physician is recommended on an annual basis and results should be correlated with mammographic findings. MG 3D Screening Mammo W/Cad Bilateral CC and MLO view(s) were taken. Prior study comparison: June 02, 2017, bilateral MG 3d screening mammo w/cad. June 01, 2016, bilateral MG 3d screening mammo w/cad. The breast tissue is heterogeneously dense. This may lower the sensitivity of mammography. Finding #1: There are two obscured oval mass in the left breast on CC only, anterior medial and posterior central position. Finding #2: There are typically benign vascular calcifications in both breasts. New finding since June 02, 2017 and June 01, 2016. ASSESSMENT: Incomplete: need additional imaging evaluation, BI-RAD 0 RECOMMENDATION: Special view mammogram of the right breast. If lesion persists on supplemental views, image directed ultrasound is recommended. [facility] will attempt to contact patient to return for supplemental views and ultrasound if indicated.
== END | disposition home or self-care (01) ==
LOC: RADMAMWWP 08:29
PROVIDERS: ATTEND Obstetrics & Gynecology
DX: Z12.31 Encounter for screening mammogram for malignant neoplasm of breast (principal)
CPT/HCPCS: 77063; 77067

== ENCOUNTER → 2018-06-06 | Outpatient (CLI) | payer MEDICARE, BC ==
--- NOTE | 2018-06-07 07:37 | MM ---
Reason for exam: additional evaluation requested from abnormal screening. Last mammogram was performed less than 1 month ago. History: Patient is postmenopausal and has history of high-risk lesion on a previous biopsy at age 48. Family history of breast cancer in maternal unspecified at age 43. High risk excisional biopsy of the left breast, 1994. Physical Findings: Nurse did not find any significant physical abnormalities on exam. MG 3D Work Up W/Cad RT Spot compression CC and LM view(s) were taken of the right breast. Prior study comparison: June 03, 2018, bilateral MG 3d screening mammo w/cad. June 02, 2017, bilateral MG 3d screening mammo w/cad. The breast tissue is heterogeneously dense. This may lower the sensitivity of mammography. Focal asymmetry anterior position does not go completely away on additional views. These results were verbally communicated with the patient and result sheet given to the patient on 06/06/18. ASSESSMENT: Incomplete: need additional imaging evaluation, BI-RAD 0 RECOMMENDATION: Ultrasound of the right breast.
--- NOTE | 2018-06-07 07:38 | USB ---
Reason for exam: additional evaluation requested from abnormal screening. History: Patient is postmenopausal and has history of high-risk lesion on a previous biopsy at age 48. Family history of breast cancer in maternal unspecified at age 43. High risk excisional biopsy of the left breast, 1994. US Breast Workup Limited RT Right limited breast ultrasound including focal area of concern, retroareolar and axilla demonstrates a 0.5 x 0.2 x 0.4cm mixed lesion at 5 o'clock. These results were verbally communicated with the patient and result sheet given to the patient on 06/06/18. ASSESSMENT: Probably benign, BI-RAD 3 RECOMMENDATION: Follow-up diagnostic mammogram and ultrasound of the right breast in 6 months.
== END | disposition home or self-care (01) ==
LOC: RADMAMWWP 14:25
PROVIDERS: ATTEND Obstetrics & Gynecology
DX: R92.8 Other abnormal and inconclusive findings on diagnostic imaging of breast (principal)
CPT/HCPCS: 77065; 76642; G0279; 77061

== ENCOUNTER → 2018-12-15 | Outpatient (CLI) | payer MEDICARE, BC ==
--- NOTE | 2018-12-15 09:13 | MM ---
Reason for exam: follow-up at short interval from prior study. Last mammogram was performed 6 months ago. History: Patient is postmenopausal and has history of high-risk lesion on a previous biopsy at age 48. Family history of breast cancer in maternal unspecified at age 43. High risk excisional biopsy of the left breast, 1994. Physical Findings: Nurse did not find any significant physical abnormalities on exam. MG 3D Diag Mammo W/Cad RT CC and MLO view(s) were taken of the right breast. Prior study comparison: June 06, 2018, right breast MG 3d work up w/cad RT. June 03, 2018, bilateral MG 3d screening mammo w/cad. The breast tissue is heterogeneously dense. This may lower the sensitivity of mammography. Stable vascular calcifications. These results were verbally communicated with the patient and result sheet given to the patient on 12/15/18. ASSESSMENT: Incomplete: need additional imaging evaluation, BI-RAD 0 RECOMMENDATION: Ultrasound of the right breast.
--- NOTE | 2018-12-15 09:14 | USB ---
Reason for exam: follow-up at short interval from prior study. History: Patient is postmenopausal and has history of high-risk lesion on a previous biopsy at age 48. Family history of breast cancer in maternal unspecified at age 43. High risk excisional biopsy of the left breast, 1994. US Breast RT Right complete breast ultrasound includes all four quadrants, the retroareolar region and axilla. Finding demonstrates a 0.4 x 0.2 x 0.4cm lesion too small to characterize at 5 o'clock. These results were verbally communicated with the patient and result sheet given to the patient on 12/15/18. ASSESSMENT: Benign, BI-RAD 2 RECOMMENDATION: Follow-up diagnostic mammogram of both breasts in 6 months. Back on schedule.
--- NOTE | 2018-12-15 11:44 | BD ---
EXAMINATION TYPE: Axial Bone Density DATE OF EXAM: 12/15/2018 COMPARISON: NONE CLINICAL HISTORY: Height: 5 FT 3 1/4 IN Weight: 112 FRAX RISK QUESTIONS: RISK FACTORS HISTORY OF: Active: YES Postmenopausal woman: AGE 55-56 MEDICATIONS: Additional Medications: NONE Additional History: EXAM MEASUREMENTS: Bone mineral densitometry was performed using the Thumb Reading System. 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 NOTE: T-SCORE=SD OF THE YOUNG ADULT MEAN.
== END | disposition home or self-care (01) ==
LOC: RADMAMWWP 08:03
PROVIDERS: ATTEND Obstetrics & Gynecology
DX: R92.8 Other abnormal and inconclusive findings on diagnostic imaging of breast (principal); M81.0 Age-related osteoporosis without current pathological fracture; M85.88 Other specified disorders of bone density and structure, other site
CPT/HCPCS: 77080; 77065; 76641; G0279; 77061

== ENCOUNTER → 2019-06-06 | Outpatient (CLI) | payer MEDICARE, BC ==
--- NOTE | 2019-06-06 11:09 | MM ---
Reason for exam: follow-up at short interval from prior study. Last mammogram was performed 6 months ago. History: Patient is postmenopausal and has history of high-risk lesion on a previous biopsy at age 48. Family history of breast cancer in maternal unspecified at age 43. High risk excisional biopsy of the left breast, 1994. Physical Findings: Nurse did not find any significant physical abnormalities on exam. MG 3D Diag Mammo W/Cad ANA Bilateral CC and MLO view(s) were taken. XCCL view(s) were taken of the left breast. Prior study comparison: December 15, 2018, right breast MG 3d diag mammo w/cad RT. June 06, 2018, right breast MG 3d work up w/cad RT. The breast tissue is extremely dense which could obscure a lesion on mammography. There are benign appearing vascular calcifications in the right breast. Asymmetric breast tissue left posterior, stable since 2017. There is no discrete abnormality. These results were verbally communicated with the patient and result sheet given to the patient on 06/06/19. ASSESSMENT: Benign, BI-RAD 2 RECOMMENDATION: Routine screening mammogram of both breasts in 1 year.
== END | disposition home or self-care (01) ==
LOC: RADMAMWWP 08:46
PROVIDERS: ATTEND Obstetrics & Gynecology
DX: R92.8 Other abnormal and inconclusive findings on diagnostic imaging of breast (principal)
CPT/HCPCS: 77066; G0279; 77062

== ENCOUNTER → 2020-09-16 | Outpatient (CLI) | payer MEDICARE, BC ==
--- NOTE | 2020-09-17 10:07 | MM ---
Reason for exam: screening (asymptomatic). Last mammogram was performed 1 year and 3 months ago. History: Patient is postmenopausal and has history of high-risk lesion on a previous biopsy at age 48. Family history of breast cancer in maternal unspecified at age 43. High risk excisional biopsy of the left breast, 1994. Physical Findings: A clinical breast exam by your physician is recommended on an annual basis and results should be correlated with mammographic findings. MG 3D Screening Mammo W/Cad Bilateral CC and MLO view(s) were taken. Prior study comparison: June 06, 2019, bilateral MG 3d diag mammo w/cad ANA. December 15, 2018, right breast MG 3d diag mammo w/cad RT. June 03, 2018, bilateral MG 3d screening mammo w/cad. The breast tissue is heterogeneously dense. This may lower the sensitivity of mammography. ASSESSMENT: Negative, BI-RAD 1 RECOMMENDATION: Routine screening mammogram of both breasts in 1 year.
== END | disposition home or self-care (01) ==
LOC: RADMAMWWP 07:20
PROVIDERS: ATTEND Obstetrics & Gynecology
DX: Z12.31 Encounter for screening mammogram for malignant neoplasm of breast (principal); Z78.0 Asymptomatic menopausal state; Z80.3 Family history of malignant neoplasm of breast
CPT/HCPCS: 77063; 77067

== ENCOUNTER → 2021-09-17 | Outpatient (CLI) | payer MEDICARE, BC ==
--- NOTE | 2021-09-18 10:57 | MM ---
Reason for Exam: Screening (asymptomatic). Last screening mammogram was performed 12 month(s) ago. Patient History: Menarche at age 13. First Full-Term at age 25. Postmenopausal. 1994, High risk Excisional Biopsy on the left side. Niece had breast cancer, age 43. Risk Values: Ronna 5 year model risk: 2.3%. NCI Lifetime model risk: 4.7%. Prior Study Comparison: 12/15/2018 Right Diagnostic Mammogram, [facility]. 06/06/2019 Bilateral Diagnostic Mammogram, [facility]. 09/16/2020 Bilateral Screening Mammogram, [facility]. Tissue Density: The breast tissue is heterogeneously dense. This may lower the sensitivity of mammography. Findings: Analyzed By CAD. There is no suspicious group of microcalcifications or new suspicious mass in either breast. Punctate calcifications noted bilaterally. Overall Assessment: Benign, BI-RAD 2 Management: Screening Mammogram of both breasts in 1 year. A clinical breast exam by your physician is recommended on an annual basis and results should be correlated with mammographic findings. Electronically signed and approved by: Howard Carrera M.D. Radiologis
== END ==
LOC: RADMAMWWP 07:37
PROVIDERS: ATTEND Obstetrics & Gynecology
DX: Z12.31 Encounter for screening mammogram for malignant neoplasm of breast (principal); Z78.0 Asymptomatic menopausal state
CPT/HCPCS: 77063; 77067

== ENCOUNTER → 2022-09-18 | Outpatient (CLI) | payer MEDICARE, OTHER ==
--- NOTE | 2022-09-18 15:08 | BD ---
EXAMINATION TYPE: Axial Bone Density DATE OF EXAM: 09/18/2022 CLINICAL HISTORY: 77 years old Female. ICD-10 CODE: Z12.31 screening mammogram M85.88 Height: 63.2 in Weight: 107 lbs RISK FACTORS HISTORY OF: Active: yes Postmenopausal woman: age 55 MEDICATIONS: Additional Medications: calcium, vit d,multi vit, fish oil EXAM MEASUREMENTS: Bone mineral densitometry was performed using the Dctio System. Bone mineral density as measured about the Lumbar spine is: ----- L1-L4(G/cm2): 0.814 T Score Values are as follows: ----- L1: -3.4 ----- L2: -3.2 ----- L3: -2.9 ----- L4: -2.9 ----- L1-L4: -3.1 Z Score Values are as follows: ----- L1: -1.0 ----- L2: -0.9 ----- L3: -0.5 ----- L4: -0.6 ----- L1-L4: -0.7 Bone mineral density has: Decreased -1.3% since study of: 12/15/2018 Bone mineral density about the R hip (g/cm2): 0.686 Bone mineral density about the L hip (g/cm2): 0.694 T Score values are as follows: -----R Neck: -2.3 -----L Neck: -2.4 -----R Total: -2.5 -----L Total: -2.5 Z Score values are as follows: -----R Neck: 0.1 -----L Neck: 0.0 -----R Total: -0.3 -----L Total: -0.2 Bone mineral density has: Decreased -10.3% since study of: 12/15/2018 FRAX%s: The graph provided illustrates a 14.4% chance for a major osteoporotic fx and a 5.0% chance f or the hips probability for fx in 10 years time. IMPRESSION: Osteoporosis (T Score less than -2.5). There is increased fracture risk and therapy is usually indicated based on age. Re-Screen 1-2 years. NOTE: T-SCORE=SD OF THE YOUNG ADULT MEAN.
--- NOTE | 2022-09-21 06:11 | MM ---
Reason for Exam: Screening (asymptomatic). Last screening mammogram was performed 12 month(s) ago. Patient History: Menarche at age 13. First Full-Term at age 25. Postmenopausal. 1994, High risk Excisional Biopsy on the left side. Niece had breast cancer, age 43. Risk Values: Ronna 5 year model risk: 2.3%. NCI Lifetime model risk: 4.4%. Prior Study Comparison: 06/06/2019 Bilateral Diagnostic Mammogram, [facility]. 09/16/2020 Bilateral Screening Mammogram, [facility]. 09/17/2021 Bilateral MG 3D screening mammo w/cad, [facility]. Tissue Density: The breast tissue is heterogeneously dense. This may lower the sensitivity of mammography. Findings: Analyzed By CAD. There is no suspicious group of microcalcifications or new suspicious mass in either breast. Benign-appearing vascular calcifications within both breasts. Overall Assessment: Benign, BI-RAD 2 Management: Screening Mammogram of both breasts in 1 year. A clinical breast exam by your physician is recommended on an annual basis and results should be correlated with mammographic findings. Note on Ronna scores and lifetime risk: 1. A Ronna score greater than 3% is considered moderate risk. If this is the case, consider specialist referral to assess eligibility for a risk reducing agent. If overall lifetime risk for the development of breast cancer is 20% or higher, the patient may qualify for future screening with alternating mammogram and breast MRI. Electronically signed and approved by: Wang Hart D.O.
== END | disposition home or self-care (01) ==
LOC: RADMAMWWP 07:55
PROVIDERS: ATTEND Obstetrics & Gynecology
DX: Z12.31 Encounter for screening mammogram for malignant neoplasm of breast (principal); M81.0 Age-related osteoporosis without current pathological fracture; M85.89 Other specified disorders of bone density and structure, multiple sites; Z78.0 Asymptomatic menopausal state
CPT/HCPCS: 77063; 77067; 77080

== ENCOUNTER → 2023-09-21 | Outpatient (CLI) | payer MEDICARE, OTHER ==
--- NOTE | 2023-09-22 12:36 | MM ---
Reason for Exam: Screening (asymptomatic). Last screening mammogram was performed 12 month(s) ago. Patient History: Menarche at age 13. First Full-Term at age 25. Postmenopausal. 1994, High risk Excisional Biopsy on the left side. Niece had breast cancer, age 43. Risk Values: Ronna 5 year model risk: 2.3%. NCI Lifetime model risk: 4.0%. Prior Study Comparison: 09/16/2020 Bilateral Screening Mammogram, [facility]. 09/17/2021 Bilateral MG 3D screening mammo w/cad, [facility]. 09/18/2022 Bilateral MG 3D screening mammo w/cad, [facility]. Tissue Density: The breasts are heterogeneously dense, which may obscure small masses. Findings: Analyzed By CAD. Right breast: There is no suspicious group of microcalcifications or new suspicious mass. Benign-appearing calcifications right breast. Left breast: There is no suspicious group of microcalcifications or new suspicious mass. Benign-appearing calcifications left breast. Overall Assessment: Benign, BI-RAD 2 Management: Screening Mammogram of both breasts in [address] [facility] will attempt to contact patient to return for supplemental views and ultrasound if indicated. Patient should continue monthly self-breast exams. A clinical breast exam by your physician is recommended on an annual basis. This exam should not preclude additional follow-up of suspicious palpable abnormalities. Note on Ronna scores and lifetime risk: 1. A Ronna score greater than 3% is considered moderate risk. If this is the case, consider specialist referral to assess eligibility for a risk reducing agent. 2. If overall lifetime risk for the development of breast cancer is 20% or higher, the patient may qualify for future screening with alternating mammogram and breast MRI. Electronically signed and approved by: Modesto Baldwin DO
== END | disposition home or self-care (01) ==
LOC: RADMAMWWP 08:36
PROVIDERS: ATTEND Family Medicine
DX: Z12.31 Encounter for screening mammogram for malignant neoplasm of breast (principal); Z78.0 Asymptomatic menopausal state
CPT/HCPCS: 77063; 77067

== ENCOUNTER → 2024-10-13 | Outpatient (CLI) | payer MEDICARE, OTHER ==
--- NOTE | 2024-10-13 09:26 | MM ---
Reason for Exam: Screening (asymptomatic). Last mammogram was performed 1 year(s) and 1 month(s) ago. Patient History: Menarche at age 13. First Full-Term at age 25. Postmenopausal. 1994, High risk Excisional Biopsy on the left side. Niece had breast cancer, age 43. Risk Values: Ronna 5 year model risk: 2.2%. NCI Lifetime model risk: 3.7%. Prior Study Comparison: 09/17/2021 Bilateral MG 3D screening mammo w/cad, [facility]. 09/18/2022 Bilateral MG 3D screening mammo w/cad, [facility]. 09/21/2023 Bilateral MG 3D screening mammo w/cad, [facility]. Tissue Density: The breasts are heterogeneously dense, which may obscure small masses. Findings: Analyzed By CAD. There is no suspicious group of microcalcifications or new suspicious mass in either breast. Overall Assessment: Benign, BI-RAD 2 Management: Screening Mammogram of both breasts in 1 year. . Patient should continue monthly self-breast exams. A clinical breast exam by your physician is recommended on an annual basis. This exam should not preclude additional follow-up of suspicious palpable abnormalities. Note on Ronna scores and lifetime risk: 1. A Ronna score greater than 3% is considered moderate risk. If this is the case, consider specialist referral to assess eligibility for a risk reducing agent. 2. If overall lifetime risk for the development of breast cancer is 20% or higher, the patient may qualify for future screening with alternating mammogram and breast MRI. [facility], , 10/13/2024 9:23 AM. Electronically signed and approved by: Edgar Sheehan M.D. Radiolog[facility]
== END | disposition home or self-care (01) ==
LOC: RADMAMWWP 09:06
PROVIDERS: ATTEND Family Medicine
DX: Z12.31 Encounter for screening mammogram for malignant neoplasm of breast (principal); R92.333 Mammographic heterogeneous density, bilateral breasts; Z78.0 Asymptomatic menopausal state; Z80.3 Family history of malignant neoplasm of breast
CPT/HCPCS: 77063; 77067